=== PATIENT | male | born 2005 | race Caucasian/White ===

== ENCOUNTER 2024-11-22 15:02 | Emergency (ER) | payer BC, SELFPAY ==
[2024-11-22 15:05] VITALS: BP 124/73; PULSE 91; RESP 16; TEMP 37.2; O2SAT 99
--- NOTE | 2024-11-22 15:34 | ED_ITS ---
HPI - Skin/Abscess/Foreign Bdy General Chief complaint: Skin/Abscess/Foreign Body Stated complaint: rash Time Seen by Provider: 11/22/24 15:15 History of Present Illness HPI narrative: This is a 19-year-old male with no significant past medical history presented to the ED for rash. Patient states that 3 days ago he was diagnosed with a cellulitis and was given a prescription for Bactrim, steroids, and steroid creams. He states that for the past 2 days he has been having a worsening rash to his entire body that has been itchy. He has been taking Benadryl for this with minimal relief. Denies fevers, chills, chest pain, shortness of breath, nausea, vomiting. Denies any known allergies. Related Data Allergies Allergy/AdvReac Type Severity Reaction Status Date / Time Sulfa (Sulfonamide Allergy Intermediate Hives Verified 11/22/24 20:00 Antibiotics) Review of Systems Review of Systems: Gen.: Denies fevers or chills Eyes: Denies eye pain or visual change ENT: Denies congestion Respiratory: Denies shortness of breath or cough CV: Denies chest pain or palpitations GI: Denies abdominal pain nausea, emesis or diarrhea denies burning, urgency, frequency or hematuria Musculoskeletal: Denies back pain or muscle pain Neuro: Denies numbness, tingling, weakness or focal weakness Skin: As per HPI Except as documented, all other systems reviewed and negative Exam Narrative: APPEARANCE: No acute distress, nontoxic, resting in bed HEENT: Normocephalic, atraumatic, OMM RESPIRATORY: No respiratory distress CARDIOVASCULAR: Appears well perfused ABDOMINAL: Nondistended MUSCULOSKELETAl: Moves all extremities. No obvious deformities NEURO: Awake and alert. SKIN:: Urticaria rash to sun-exposed areas of the body, warm to touch PSYCHIATRIC: Normal affect/mood, Course Vital Signs Vital signs: Vital Signs Temperature 98.9 F 11/22/24 15:05 Pulse Rate 91 11/22/24 15:05 Respiratory Rate 16 11/22/24 15:05 Blood Pressure 124/73 11/22/24 15:05 Pulse Oximetry 99 11/22/24 15:05 Oxygen Delivery Room Air 11/22/24 15:05 Temperature 98.9 F 11/22/24 15:05 Pulse Rate 91 11/22/24 15:05 Respiratory Rate 16 11/22/24 15:05 Blood Pressure 124/73 11/22/24 15:05 Pulse Oximetry 99 11/22/24 15:05 Oxygen Delivery Room Air 11/22/24 15:05 MDM - Skin/Abscess/Foreign Bdy MDM Narrative Medical decision making narrative: 19-year-old male that presented to the ED for her rash. On initial evaluation, patient was in no acute distress, afebrile and hemodynamically stable. He did have an urticarial rash only to the sun-exposed areas. Suspect that patient is having a reaction to the Bactrim that he was placed on and that the concurrent steroids are limiting the reaction. He was advised to stop taking the Bactrim. He will be switched to Keflex. He was given a referral to [facility] for further evaluation. Patient was agreeable to this plan. Given strict return precautions. Differential Diagnosis Differential diagnosis: Likely urticaria, allergic reaction to drug, cellulitis, eczema and impetigo Medical Records Attestation: I reviewed the patient's medical records. Discharge Plan Discharge Clinical Impression: Allergic reaction to drug Qualifiers: Encounter type: initial encounter Qualified Code(s): T78.40XA - Allergy, unspecified, initial encounter Cellulitis Qualifiers: Site of cellulitis: extremity Site of cellulitis of extremity: lower extremity Laterality: right Qualified Code(s): L03.115 - Cellulitis of right lower limb Patient Disposition: Home Condition: Stable Instructions: Antibiotic Form, General Allergic Reaction (ED) Additional Instructions: Continue take his steroids as previously prescribed. Your likely allergic to sulfa drugs so do not take these in the future. Your given a prescription for Keflex, take this as prescribed. You were given a referral to Dr. Ingram, [facility], follow up with him the next week for reevaluation if needed. Return to the ED for new or worsening symptoms. Patient Language: Romanian Prescriptions: New cephalexin 500 mg capsule 500 mg PO Q6H 3 Days Qty: 12 0RF Follow-up/Referrals: PHYSICIAN NOT ON STAFF,NONSTAFF [Primary Care Provider]
--- OUTSIDE RECORDS SUMMARY | 2024-11-22 16:35 | XMS_ITS | Clinical Summary ---
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 Gender Identity Not on file Sexual Orientation Not on file Plan of Treatment Health Maintenance Due Date Last Done Comments Annual Physical 09/27/2007 HPV Vaccines (1 - Male 3-dos e series) 09/27/2019 Meningococcal B Vaccine (1 o f 2 - Standard) 2020 Hepatitis C 2022 DTaP, Tdap and Td Vaccines ( 1 - Tdap) 09/27/2023 Hepatitis B Vaccines (1 of 3 - 19+ 3-dose series) 09/27/2023 COVID-19 Vaccine (1 - 2023-2 5 season) 2024 Meningococcal Vaccine Aged Out No vern stan eligible based on patient's age to complete this topic Pneumococcal Vaccine: Pediat rics (0 to 5 Years) and At-Risk Patients (6 to 49 Years) Aged Out No longer eligible b ased on patient's age to complete this topic RSV Immunizations Under 20 Months Aged Out No longer eligible based on patient's age to complete this topic
--- OUTSIDE RECORDS SUMMARY | 2024-11-22 16:35 | XMS_ITS | Encounter Summary ---
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
--- OUTSIDE RECORDS SUMMARY | 2024-11-22 16:36 | XMS_ITS | Encounter Summary ---
Author Organization [facility] Address [address] [place] [address] Care Team Providers Care Plastics Fitter Name Role Phone Unknown, Notinfile Primary Care Provider Unavail able Encounter Details Date Type Department Care Team (Late st Contact Info) Description 11/22/2024 Telephone [facility] at [address] [phone] Jeanette Gurrola PA [address] [place] [address] [address] [place] [address] Social History Tobacco Use Types Packs/Day Years Used Date Smoking Tobacco: Never Assessed Sex and Gender Information Value Date Recorded Sex Assigned at Not on file Legal Sex Male 3:43 PM CDT Gender Identity Not on file Sexual Orientation Not on file documented as of this encounter Miscellaneous Notes * Telephone Encounter - Margi Larose LPN - 11/22/2024 2:31 PM CDT Pt called and stated his rash on leg is worsening. Per FIONA Gurrola she treated him for multiple things and if he's worsening he needs to go to ED for further testing. Pt notified of this repose and verbalized understanding documented in this encounter Plan of Treatment Not on file documented as of this encounter Visit Diagnoses Not on filedocumented in this encounter Care Teams Plastics Fitter Relationship Specialty Start Date End Date Unknown, Notisajan PCP - General 11/18/24 documented as of this encounter
--- OUTSIDE RECORDS SUMMARY | 2024-11-22 16:36 | XMS_ITS | Clinical Summary ---
Author Organization [address] Address [address] [place] [id number] Care Team Providers Care Emanations Analysis Technician Name Role Phone Unknown, Notinfile Primary Care Provider Unavail able Allergies No known active allergies Medications ISOtretinoin (ABSORCA) 40 mg capsule Take 1 capsule (40 mg total) by mouth daily 10/12/2024 Active sulfamethoxazol e-trimethoprim (BACTRIM DS) 800-160 mg per tablet Take 1 tablet by mouth 2 (two) times a day for 7 days 14 tablet 11/18/2024 11/26/19 25 Active predniSONE (DELTASONE) 20 mg tablet Take 1 tablet (20 mg) by mouth daily for 5 days 5 tablet 11/18/2024 11/24/19 25 Active triamcinolone (KENALOG) 0.1 % cream Apply to affected area 1-2 times daily as needed. Avoid face and groin. 30 g 11/18/2024 Active Active Problems No known active problems Encounters Date Type Department Care Team Description 11/22/2024 Telephone [facility] at [address] [phone] Jeanette Gurrola PA 11/18/2024 5:00 PM CDT Office Visit [facility] at [address] [phone] Jeanette Gurrola PA Cellulitis of lower extremity, unspecified laterality (Primary Dx) from Last 3 Months Social History Tobacco Use Types Packs/Day Years Used Date Smoking Tobacco: Never Assessed Sex and Gender Information Value Date Recorded Sex Assigned at Not on file Legal Sex Male 3:43 PM CDT Gender Identity Not on file Sexual Orientation Not on file Obstetrics History Last Filed Vital Signs Vital Sign Reading Time Taken Comments Blood Pressure 114/62 11/18/2024 5:12 PM CDT Pulse 61 11/18/2024 5:12 PM CDT Temperature 36.7 C (98.1 F) 11/18/2024 5:12 PM CDT Respiratory Rate 16 11/18/2024 5:12 PM CDT Oxygen Saturation 98% 11/18/2024 5:12 PM CDT Inhaled Oxygen Concentration - - Weight 79.6 kg (175 lb 6.4 oz) 11/18/2024 5:12 P M CDT Height 180.3 cm (5' 11) 11/18/2024 5:12 PM CDT Body Mass Index 24.46 11/18/2024 5:12 PM CDT Plan of Treatment Health Maintenance Due Date Last Done Comments Depression Screening 2004 Hepatitis C Screening 2004 Varicella Vaccines (2 of 2 - 2-dose childhood series) 2008 10/08/2005 Regular Well Visit/Exam 18-64 2022 Meningococcal B Vaccine (2 o f 2 - Bexsero SCDM 2-dose series) 04/10/2023 10/08/2022 Covid-19 Vaccine (4 - 2024-2 6 season) 2024 06/27/2021, 10/13/2020, 09/15/2020 Influenza Vaccine (#1) 2024 , 12/17/2020, 01/11/2020, Additional history exists DTaP/Tdap/Td Vaccine (6 - Td or Tdap) 07/05/2026 07/05/2016, 01/18/2006, 04/02/2005, Additional history exists Hepatitis B Screening Completed 04/02/2005 , 01/28/2005, 2004, Additional history exists Pneumococcal vaccine <65 Completed 006, 04/02/2005, 01/28/2005, Additional history exists HPV Vaccines Completed 01/16/2018, 07/04/2017 Meningococcal Vaccine Completed 08/11/2022, 017 Insurance [facility] Care Teams Emanations Analysis Technician Relationship Specialty Start Date End Date Unknown, Notinfile PCP - General 11/18/24
== END 2024-11-22 16:12 | disposition home or self-care (01) ==
LOC: ANHED 16:06
PROVIDERS: Emergency Provider Student in an Organized Health Care Education/Training Program
DX: T78.40XA Allergy, unspecified, initial encounter (principal); L03.115 Cellulitis of right lower limb
CPT/HCPCS: 99283